=== PATIENT | male | born 1985 | race Caucasian/White ===

== ENCOUNTER 2017-10-08 12:01 | Emergency (ER) | payer OTHER ==
[~2017-10-08] VITALS: Ht 177.8 cm; Wt 67.5 kg
[2017-10-08 13:19] LABS: BASOPHIL (%) 0.1 % (0-1); EOSINOPHIL (%) 0 % (0-5); HEMATOCRIT 45.7 % (38.0-50.0); HEMOGLOBIN 15.8 G/DL (12.5-16.6); IMMATURE GRANULOCYTE (%) 0.3 % (0.0-0.7); LYMPHOCYTE (%) 4.6 % (15-42); LYMPHOCYTE COUNT 0.6 K/uL (1.0-2.8); MCHC 34.6 G/DL (30.0-36.0); MCV 92.7 FL (86-99); MONOCYTE (%) 3.3 % (3-12); MONOCYTE COUNT 0.5 K/uL (0-0.8); NEUTROPHIL (%) 91.7 % (45-76); NEUTROPHIL COUNT 12.3 K/uL (1.8-6.4); PLATELET COUNT 241 K/uL (156-360); RBC DIS.WIDTH-CV 11.7 % (11.8-14.6); RBC DIS.WIDTH-SD 40.4 % (39-53); RED BLOOD COUNT 4.93 M/uL (4.00-5.50); WHITE BLOOD COUNT 13.5 K/uL (4.1-10.2)
[2017-10-08 13:24] LABS: ALBUMIN 4.7 g/dL (3.2-4.8); CHLORIDE 110 mEq/L (99-109); POTASSIUM 4.2 mEq/L (3.7-5.4)
[2017-10-08 13:25] LABS: SODIUM 142 mEq/L (136-147)
[2017-10-08 13:27] LABS: GLUCOSE 123 mg/dL (70-99); TOTAL PROTEIN 7.8 g/dL (6.4-8.3)
[2017-10-08 13:29] LABS: TOTAL BILIRUBIN 0.5 mg/dL (0.0-1.0)
[2017-10-08 13:30] LABS: SERUM ETHYL ALCOHOL < 10 mg/dL
[2017-10-08 13:31] LABS: ALKALINE PHOSPHATASE 96 IU/L (3-129); CREATININE 0.9 mg/dL (0.6-1.3); GFR ESTIMATE (CALCULATED) > 59 mL/min/ (58.99-99999)
[2017-10-08 13:32] LABS: AST (GOT) 16 IU/L (2-34); DIRECT BILIRUBIN 0.2 mg/dL (0.0-0.3)
[2017-10-08 13:33] LABS: UREA NITROGEN (BUN) 18 mg/dL (9-23)
[2017-10-08 13:34] LABS: ALT (GPT) 11 IU/L (3-49); SALICYLATE < 5.0 MG/DL (15-30)
[2017-10-08 13:35] LABS: ACETAMINOPHEN (TYLENOL) < 10 mcg/mL (10-30); CREATINE KINASE 479 IU/L (1-294); TOTAL CK 479 IU/L (1-294)
[2017-10-08 14:25] LABS: APPEARANCE SL.HAZY ((CLEAR)); BILIRUBIN NEGATIVE; BLOOD NEGATIVE; COLOR YELLOW ((YELLOW)); GLUCOSE (STRIP) NEGATIVE; KETONES 20; LEUKOCYTES TRACE; NITRITE NEGATIVE; PROTEIN (STRIP) 30; SPECIFIC GRAVITY 1.029 (1.000-1.030); UROBILINOGEN 0.2 MG/DL (0.2-1.0)
[2017-10-08 14:27] LABS: BACTERIA NONE SEEN /HPF; EPITHELIAL CELLS RARE /HPF; MUCUS TRACE /LPF; RED BLOOD CELLS 0-5 /HPF (0-5); WHITE BLOOD CELLS 0-5 /HPF (0-5)
[2017-10-08 14:51] LABS: AMPHETAMINE NEGATIVE (500 ng/mL); BARBITURATES NEGATIVE (200 ng/mL); BENZODIAZEPINES NEGATIVE (150 ng/mL); BUPRENORPHINE NEGATIVE (10 ng/mL); COCAINE NEGATIVE (150 ng/mL); METHADONE NEGATIVE (200 ng/mL); METHAMPHETAMINE NEGATIVE (500 ng/mL); OPIATES (MORPHINE) NEGATIVE (100 ng/mL); OXYCODONE NEGATIVE (100 ng/mL); PHENCYCLIDINE NEGATIVE (25 ng/mL); PROPOXYPHENE NEGATIVE (300 ng/mL); THC CANNABINOIDS NEGATIVE (50 ng/mL); TRICYCLIC ANTIDEPRESSANTS NEGATIVE (300 ng/mL)
[2017-10-08 15:25] VITALS: BP 129/73
== END 2017-10-08 15:25 | disposition home or self-care (01) ==
LOC: EME 12:01
PROVIDERS: Emergency Medicine
DX: T43.4X Poisoning by, adverse effect of and underdosing of butyrophenone and thiothixene neuroleptics (principal); T45.0X Poisoning by, adverse effect of and underdosing of antiallergic and antiemetic drugs; Y92.149 Unspecified place in prison as the place of occurrence of the external cause; R00.0 Tachycardia, unspecified; R94.31 Abnormal electrocardiogram [ECG] [EKG]
CPT/HCPCS: 80048; 80076; 81003; 82550; 82553; 85025; 93005; 99281; 99284; G0480; J2060; J7030